=== PATIENT | female | born 1985 | race Two or more races ===

== ENCOUNTER 2019-07-28 20:01 | Emergency (ER) | payer SELFPAY ==
[~2019-07-28] VITALS: Ht 152.4 cm; Wt 66.7 kg
[2019-07-28 20:25] VITALS: BP 114/76
--- NOTE | 2019-07-28 20:25 | NUR ---
ER Nurse Note: Pt walked in c/o dry cough, sneeze, fever for over "few days". Pt stated she has pain in her chest when she coughs. Oral temp 100F at triage. Will continue to [facility].
[2019-07-28] MEDS ORDERED: Acetaminophen 500mg (ES) tab ORAL ONE (20:30)
--- NOTE | 2019-07-28 20:40 | Emergency Room Report ---
History of Present Illness General Chief Complaint: Flu Like Symptoms Source: Patient Present Illness HPI 33-year-old female history of tubal ligation presents with cough, congestion, fever/chills, body aches x5 days alleviated with NyQuil no aggravating factors severity is moderate, constant patient presents for evaluation Allergies: Coded Allergies: No Known Allergies (Unverified , 07/28/19) Patient History Past Medical History: see triage record Last Menstrual Period: unk Reviewed Nursing Documentation: PMH: Agreed; PSxH: Agreed Nursing Documentation-PMH Past Medical History: No Stated History Review of Systems All Other Systems: negative except mentioned in HPI Physical Exam Vital Signs Date Time Temp Pulse Resp B/P (MAP) Pulse Ox O2 Delivery O2 Flow Rate FiO2 07/28/19 20:13 100.9 155 19 114/76 (89) 93 Room Air Sp02 EP Interpretation: reviewed, normal General Appearance: well appearing, no apparent distress, alert Head: normocephalic, atraumatic Eyes: bilateral eye PERRL, bilateral eye EOMI ENT: uvula midline, dry mucus membranes, nasal congestion Neck: supple, thyroid normal, supple/symm/no masses Respiratory: lungs clear, no respiratory distress, no retraction, no accessory muscle use Cardiovascular #1: normal peripheral pulses, no edema, no gallop, no murmur, tachycardia Gastrointestinal: non tender, soft, no guarding, no rebound Musculoskeletal: normal inspection Neurologic: alert, oriented x3 Psychiatric: mood/affect normal Skin: no rash, warm/dry Medical Decision Making Diagnostic Impression: Primary Impression: Influenza-like symptoms ER Course 33-year-old female presents with symptoms consistent with most likely the flu will order chest x-ray to rule out pneumonia We will provide patient with fluids antipyretics We will reevaluate patient and if everything negative discharge patient home Tachycardia resolved with fluids, temperature control Disposition home with return precautions follow-up with PCP Rhythm Strip Diag. Results Rhythm Strip Time: 22:12 EP Interpretation: yes Rate: 89 Rhythm: NSR, no PVC's, no ectopy Chest X-Ray Diagnostic Results Chest X-Ray Diagnostic Results : Chest X-Ray Ordered: Yes # of Views/Limited/Complete: 1 View Indication: Other - Cough EP Interpretation: Yes Interpretation: no consolidation, no effusion, no pneumothorax, no acute cardiopulmonary disease Impression: No acute disease Electronically Signed by: Brayden Beck MD Last Vital Signs Date Time Temp Pulse Resp B/P (MAP) Pulse Ox O2 Delivery O2 Flow Rate FiO2 07/28/19 20:13 100.9 155 19 114/76 (89) 93 Room Air Disposition: HOME, SELF-CARE Condition: Stable Referrals: [facility] Patient Instructions: Influenza, Adult, [id number] Additional Instructions: The patient was provided with discharge instructions, notified to follow-up with a primary care doctor and or specialist in the next 24-48 hours, and to return to the ED if they have worsening of their symptoms. Please note that this report is being documented using [employer] technology. This can lead to erroneous entry secondary to incorrect interpretation by the dictating instrument. Brayden Beck MD Jul 28, 2019 20:40
[2019-07-28] MEDS ORDERED: Ketorolac 30mg Inj IV ONE (20:45)
[2019-07-28 22:20] VITALS: BP 120/72
--- NOTE | 2019-07-28 22:20 | NUR ---
ED Nurse Note: All orders completed per ERMD orders. Pt cleared by health care Provider for discharge. DC instructions/prescription was given and explained to pt and verbalized understanding of teachings. Instructed pt to follow up with primary care physcian within one week. All medical deviecs such as ID band removed. IV removed; site clean and banded. Pt is AAO x4, ambulatory and left with all personal belongings.
--- NOTE | 2019-07-29 12:26 | Diagnostic Imaging Report ---
Indication: Dyspnea Comparison: None A single view chest radiograph was obtained. Findings: Cardiomediastinal appearance is within normal limits for age. Mild increased density at the lung bases likely atelectasis although infiltrate not excluded. Pulmonary vascularity is appropriate. The diaphragmatic contour is smooth and costophrenic angles are sharp. No pleural effusions are identified. The bones are unremarkable. Impression: Basilar density likely atelectasis. Pneumonia not entirely excluded.
== END 2019-07-28 22:20 | disposition home or self-care (01) ==
LOC: EMR 22:20
DX: R05 Cough (principal); R50.9 Fever, unspecified
CPT/HCPCS: 71045; 86710; 96361; 96374; 99284; J1885; J7030